=== PATIENT | female | born 1950 | race Caucasian/White ===

== ENCOUNTER → 2017-01-14 | Day surgery (SDC) | payer OTHER ==
[2017-01-06 09:36] VITALS: Ht 166.4 cm; Wt 84.1 kg
[~2017-01-14] VITALS: Ht 166.4 cm; Wt 84.1 kg
[~2017-01-14] MED LIST: ASPI81TA28 PO; CHOL1CAP57 PO; FENTANYL CITRATE INJ 50 MCG/1 ML 2 ML VIAL ONE; MAGNESIUM PO; MELA3TAB7 PO; METO50TA16 PO; MISCCAP80 PO; MISCTAB78 PO; PROPOFOL IV EMULSION 10 MG/ML 20 ML VIAL IV ONE; SODIUM CHLORIDE 0.9% 500ML 500 ML IV ONE; ZNTT/150 PO
--- NOTE | 2017-01-14 11:48 | Endo History and Physical ---
History & Physical Date of Service: Jan 14, 2017. Chief Complaint: GERD, ESOPHAGITIS, HX OF COLON POLPYS Referring Physician: Dr. Meehan History of Present Illness 66 yo CF who presents for EGD secondary to GERD and Colonoscopy secondary to history of colon polyps. Past Surgical History Hx Cardiac Surgery: No Hx Internal Defibrillator: No Hx Pacemaker: No Hx Abdominal Surgery: Yes (Cholecystectomy) Hx of Implantable Prosthesis: No Hx Post-Op Nausea and Vomiting: Yes (X 1 WITH PONV) Hx Cancer Surgery: No Hx Thoracic Surgery: No Hx Orthopedic: No Hx Urinary Tract Surgery: No Family History Esophogeal CA Social History Smoking Status: Never Smoker Hx Substance Use: No Hx Alcohol Use: Yes (SOCIAL ON OCC) Allergies Coded Allergies: Sulfa Antibiotics (Verified Allergy, Unknown, EXTREM HIVES , 01/14/17) Codeine (Verified Adverse Reaction, Unknown, VOMITING, 01/14/17) Current Medications Reported Home Medications Medications Dose Route/Sig Max Daily Dose Days Date Category Dose Instructions [Melatonin] 1 Mg PO HS 01/06/17 Reported [Magnesium] 250 Mg PO QPM 01/06/17 Reported Osteo Bi-Flex Advanced Do (Misc Natural Products) 1 Tab Tab 1 Tab PO BID 01/06/17 Reported Lopressor (Metoprolol Tartrate) 50 Mg Tab 50 Mg PO QPM 02/08/16 Reported PT IS NOT SURE IF METOPROLOL IS TARTRATE OR SUCCINATE Probiotic (Probiotic Product) 1 Cap Cap 1 Cap PO QPM 02/08/16 Reported Vitamin D3 (Cholecalciferol) 1,000 Unit Cap 1,000 Units PO QAM 02/08/16 Reported Zantac (Ranitidine HCl) 150 Mg Tab 150 Mg PO BID 02/08/16 Reported Vital Signs Weight (Kilograms): 84.09 Height (Feet): 5 Height (Inches): 5.5 Date Time Temp Pulse Resp B/P (MAP) Pulse Ox O2 Delivery O2 Flow Rate FiO2 01/14/17 11:22 36.9 76 16 140/76 (97) 99 Room Air Physical Exam General Appearance: WD/WN, no apparent distress Respiratory/Chest: Auscultation: breath sounds normal Cardiovascular: Heart Auscultation: RRR Abdomen: Bowel Sounds: normal Inspection & Palpation: soft, non-distended, no tenderness, guarding & rebound Assessment and Plan Assessment: 66 yo CF who presents for EGD secondary to GERD and Colonoscopy secondary to history of colon polyps. Plan: Proceed with EGD and colonoscopy.
--- NOTE | 2017-01-14 12:13 | Discharge Instructions ---
Endoscopy Patient Instructions Date / Procedure(s) Performed Jan 14, 2017. Colonoscopy, EGD Allergy Information Coded Allergies: Sulfa Antibiotics (Verified Allergy, Unknown, EXTREM HIVES , 01/14/17) Codeine (Verified Adverse Reaction, Unknown, VOMITING, 01/14/17) Discharge Date / Findings Jan 14, 2017. EGD: Gastritis s/p biopsies Colonoscopy: Polyp Medication Instructions 1) Recommend starting Pantoprazole 40mg by mouth each morning 1/2 hour prior to breakfast. 2) Start Carafate 1g by mouth four times daily for 10 days 3) Resume all other medications today as prescribed Reported Home Medications Medications Dose Route/Sig Max Daily Dose Days Date Category Dose Instructions [Melatonin] 1 Mg PO HS 01/06/17 Reported [Magnesium] 250 Mg PO QPM 01/06/17 Reported Osteo Bi-Flex Advanced Do (Misc Natural Products) 1 Tab Tab 1 Tab PO BID 01/06/17 Reported Lopressor (Metoprolol Tartrate) 50 Mg Tab 50 Mg PO QPM 02/08/16 Reported PT IS NOT SURE IF METOPROLOL IS TARTRATE OR SUCCINATE Probiotic (Probiotic Product) 1 Cap Cap 1 Cap PO QPM 02/08/16 Reported Vitamin D3 (Cholecalciferol) 1,000 Unit Cap 1,000 Units PO QAM 02/08/16 Reported Zantac (Ranitidine HCl) 150 Mg Tab 150 Mg PO BID 02/08/16 Reported Provider Instructions Activity Restrictions - No exercising or heavy lifting for 24 hours. - Do not drink alcohol the day of the procedure. - Do not drive a car or operate machinery until the day after the procedure. - Do not make any important decisions or sign important papers in 24 hours after the procedure. Following Day: - Return to full activity which may include returning to work/school. Diet Start your diet with liquids and light foods (jello, soup, juice, toast). Then eat your usual diet if not nauseated. Treatment For Common After Affects For mild abdominal pain, bloating, or excessive gas: - Rest - Eat lightly - Lie on right side Follow-Up Information Follow-up with as scheduled Anesthesia Information What You Should Know You have had a procedure that required some medicine to reduce anxiety and discomfort. This treatment is called moderate sedation. After receiving the treatment, you may be sleepy, but you will be able to breathe on your own. The effects of the treatment may last for several hours. Follow these instructions along with Activity/Diet recommendations noted above: * Do NOT do anything where dizziness or clumsiness would be dangerous. * Rest quietly at home today, then you can be up and about tomorrow. * Have a responsible person stay with you the rest of today. * You may have had an I.V. today. If so, you may take the dressing off later today. Recommendations Call your doctor if: * Trouble breathing * Continuous vomiting for more than 24 hours * Temperature above 101 degrees * Severe abdominal pain or bloating * Pain not relieved by pain medicine ordered * There is increased drainage or redness from any incision * A large amount of rectal bleeding greater than 2-3 tablespoons. (If you had a polyp/s removed or have hemorrhoids, a small amount of blood - from the rectum is to be expected.) * You have any unanswered questions or concerns. IN THE EVENT OF A SERIOUS EMERGENCY, GO TO THE NEAREST EMERGENCY ROOM Your discharge instructions were prepared by provider Filemon Meehan. Patient Instructions Signature Page Temi Garcia Patient (or Guardian) Signature/Date: I have read and understand the instructions given to me by my caregivers. Caregiver/RN/Doctor Signature/Date: The above-named patient and/or guardian has received patient instructions on this date. + Original Patient Signature Page (only) stays with chart. Please make copy for patient.
--- NOTE | 2017-01-14 12:17 | GI REPORT ---
Procedure Date: 01/14/2017 11:30 AM Procedure: Colonoscopy Indications: High risk colon cancer surveillance: Personal history of colonic polyps Medicines: Monitored Anesthesia Care Complications: No immediate complications. Estimated Blood Loss: Estimated blood loss: none. Procedure: Pre-Anesthesia Assessment: - Prior to the procedure, a History and Physical was performed, and patient medications and allergies were reviewed. The patient's tolerance of previous anesthesia was also reviewed. The risks and benefits of the procedure and the sedation options and risks were discussed with the patient. All questions were answered, and informed consent was obtained. Prior Anticoagulants: The patient has taken aspirin, last dose was 1 day prior to procedure. ASA Grade Assessment: II - A patient with mild systemic disease. After reviewing the risks and benefits, the patient was deemed in satisfactory condition to undergo the procedure. After I obtained informed consent, the scope was passed under direct vision. Throughout the procedure, the patient's blood pressure, pulse, and oxygen saturations were monitored continuously. The scope was introduced through the anus and advanced to the terminal ileum. The colonoscopy was performed without difficulty. The patient tolerated the procedure well. The quality of the bowel preparation was good. The terminal ileum, ileocecal valve, appendiceal orifice, and rectum were photographed. Findings: A 3 mm polyp was found in the sigmoid colon. The polyp was sessile. The polyp was removed with a cold biopsy forceps. Resection and retrieval were complete. Impression: - One 3 mm polyp in the sigmoid colon, removed with a cold biopsy forceps. Resected and retrieved. Recommendation: - Resume previous diet. - Continue present medications. - Repeat colonoscopy for surveillance based on pathology results. - Return to primary care physician as previously scheduled. Filemon Meehan, 01/14/2017 12:17:05 PM This report has been signed electronically. Note Initiated On: 01/14/2017 11:30 AM I attest to the content of the Intraoperative Record and orders documented therein, exceptions below
--- NOTE | 2017-01-14 12:19 | GI REPORT ---
Procedure Date: 01/14/2017 11:31 AM Procedure: Upper GI endoscopy Indications: Suspected gastro-esophageal reflux disease Medicines: Monitored Anesthesia Care Complications: No immediate complications. Estimated Blood Loss: Estimated blood loss: none. Procedure: Pre-Anesthesia Assessment: - Prior to the procedure, a History and Physical was performed, and patient medications and allergies were reviewed. The patient's tolerance of previous anesthesia was also reviewed. The risks and benefits of the procedure and the sedation options and risks were discussed with the patient. All questions were answered, and informed consent was obtained. Prior Anticoagulants: The patient has taken aspirin, last dose was 1 day prior to procedure. ASA Grade Assessment: II - A patient with mild systemic disease. After reviewing the risks and benefits, the patient was deemed in satisfactory condition to undergo the procedure. After obtaining informed consent, the endoscope was passed under direct vision. Throughout the procedure, the patient's blood pressure, pulse, and oxygen saturations were monitored continuously. The scope was introduced through the mouth, and advanced to the second part of duodenum. The upper GI endoscopy was accomplished without difficulty. The patient tolerated the procedure well. Findings: The examined esophagus was normal. Localized moderate inflammation characterized by erosions was found in the gastric antrum. Biopsies were taken with a cold forceps for histology. The examined duodenum was normal. Impression: - Normal esophagus. - Gastritis. Biopsied. - Normal examined duodenum. Recommendation: - Resume previous diet. - Use Protonix (pantoprazole) 40 mg PO daily. - Use sucralfate tablets 1 gram PO QID for 10 days. - Await pathology results. - Return to GI office as previously scheduled. Filemon Meehan, 01/14/2017 12:18:55 PM This report has been signed electronically. Note Initiated On: 01/14/2017 11:31 AM I attest to the content of the Intraoperative Record and orders documented therein, exceptions below
[2017-01-14 12:48] VITALS: BP 102/56; PULSE 66; O2SAT 97
--- NOTE | 2017-01-14 13:17 | Anesthesiology Progress Note ---
Anesthesia Post Op Note Date & Time Jan 14, 2017 at 13:17 Vital Signs Pain Intensity: 0 Vital Signs Past 12 Hours Date Time Temp Pulse Resp B/P (MAP) Pulse Ox O2 Delivery O2 Flow Rate FiO2 01/14/17 12:48 66 20 102/56 (71) 97 Room Air 01/14/17 12:32 67 20 97/54 (68) 97 Room Air 01/14/17 12:19 75 20 82/55 (64) 97 Room Air 01/14/17 11:22 36.9 76 16 140/76 (97) 99 Room Air Notes Mental Status: alert / awake / arousable, participated in evaluation Pt Amnestic to Procedure: Yes Nausea / Vomiting: adequately controlled Pain: adequately controlled Airway Patency, RR, SpO2: stable & adequate BP & HR: stable & adequate Hydration State: stable & adequate Anesthetic Complications: no major complications apparent
== END | disposition home or self-care (01) ==
LOC: C.GI 10:54
PROVIDERS: ATTEND Internal Medicine
DX: Z12.11 Encounter for screening for malignant neoplasm of colon (principal); D12.5 Benign neoplasm of sigmoid colon; Z86.010 Personal history of colon polyps; K29.50 Unspecified chronic gastritis without bleeding; K21.9 Gastro-esophageal reflux disease without esophagitis; Z80.0 Family history of malignant neoplasm of digestive organs; Z79.899 Other long term (current) drug therapy

== ENCOUNTER → 2017-05-18 | Outpatient (CLI) | payer OTHER ==
[~2017-05-18] MED LIST changes: -FENTANYL CITRATE INJ 50 MCG/1 ML 2 ML VIAL ONE; -PROPOFOL IV EMULSION 10 MG/ML 20 ML VIAL IV ONE; -SODIUM CHLORIDE 0.9% 500ML 500 ML IV ONE
--- NOTE | 2017-05-18 16:33 | DIAGNOSTIC IMAGING REPORT ---
CHEST 2 VIEWS ROUTINE CLINICAL HISTORY: COUGH COMPARISON STUDY: 02/08/2016 FINDINGS: The cardiac and mediastinal contours are normal. There is no evidence of focal pulmonary consolidation. There is no evidence of failure. No pleural effusions are visualized.[ IMPRESSION: No active disease in the chest. Electronically signed by: Osman Garcia M.D. 05/18/2017 4:32 PM Dictated Date/Time: 05/18/2017 4:32 PM
== END | disposition home or self-care (01) ==
LOC: C.RADBC 16:06
PROVIDERS: ATTEND Nurse Practitioner
DX: R05 Cough (principal)

== ENCOUNTER → 2017-06-19 | Outpatient (CLI) | payer OTHER ==
--- NOTE | 2017-07-03 13:37 | MAMMOGRAPHY REPORT ---
BILATERAL DIGITAL SCREENING MAMMOGRAM TOMOSYNTHESIS WITH CAD: 06/19/2017 CLINICAL HISTORY: Routine screening. Patient has no complaints. TECHNIQUE: Breast tomosynthesis in addition to standard 2D mammography was performed. Current study was also evaluated with a Computer Aided Detection (CAD) system. COMPARISON: Outside prior screen film mammograms dated 01/01/2010 and 11/20/2008. BREAST COMPOSITION: There are scattered areas of fibroglandular density in both breasts. FINDINGS: No suspicious masses, calcifications, or areas of architectural distortion are noted in ei ther breast. There has been no significant interval change compared to prior exams. Small circumscri bed 7 mm benign-appearing mass in the left upper outer quadrant is stable. Circumscribed oval benign -appearing 8 mm mass within the right lateral anterior breast is also not significantly changed. IMPRESSION: ACR BI-RADS CATEGORY 2: BENIGN There is no mammographic evidence of malignancy. A 1 year screening mammogram is recommended. The pa tient will receive written notification of the results. Approximately 10% of breast cancers are not detected with mammography. A negative mammographic report should not delay biopsy if a clinically suggestive mass is present. Carlene Bingham M.D. ah/:07/03/2017 07:51:24 Neurology Teacher: Estephanie MICHEL(Mukesh)(M), [facility] letter sent: Normal 1/2 BI-RADS Code: ACR BI-RADS Category 2: Benign
== END | disposition home or self-care (01) ==
LOC: C.MAMM 14:37
PROVIDERS: ATTEND Internal Medicine
DX: Z12.31 Encounter for screening mammogram for malignant neoplasm of breast (principal)

== ENCOUNTER 2017-08-24 10:36 | Emergency (ER) | payer OTHER ==
[~2017-08-24] VITALS: Ht 167.6 cm; Wt 85.0 kg
[2017-08-24 10:41] VITALS: TEMP 36.8; Ht 167.6 cm; Wt 85.0 kg
[2017-08-24 10:55] VITALS: O2SAT 100
[2017-08-24] MEDS ORDERED: APIX1TAB3 PO (11:23)
--- NOTE | 2017-08-24 11:23 | EMERGENCY ROOM VISIT NOTE ---
History First contact with patient: 10:38 Chief Complaint: CARDIAC ASSESSMENT Stated Complaint: A-FIB (SENT BY DR BOO) Nursing Triage Summary: HAD PALPATATION THAT STarted 0430 non now History of Present Illness The patient is a 66 year old female who presents to the Emergency Room with complaints of injury for evaluation. The patient states that she started having symptoms this morning around 4:30 AM. She felt like her heart was racing and she was having palpitations. He was seen by Dr. Velez in the office and diagnosed with A. fib with RVR with a heart rate around 140. She was sent to the emergency department for further evaluation. When she was in the waiting room, she states that she suddenly felt like her symptoms resolved. Upon coming back to the room, the patient was found to be in a normal sinus rhythm. She is currently symptomatically has no complaints. She denied having any chest pains, palpitations, recent illness or fevers. I spoke with Dr. Boo. He would like the patient be placed on Apixaban 5mg bid and increase Lopressor to 25 bid. Review of Systems As above otherwise negative for 10 systems. Past Medical/Surgical History Medical Problems: (1) Atrial fibrillation with RVR (2) Hypokalemia, excessive renal losses Social History Smoking Status: Never Smoker Drug Use: none Marital Status: Housing Status: lives with family Occupation Status: employed Current/Historical Medications Scheduled Aspirin (Aspirin Ec), 243 MG PO QAM Cholecalciferol (Vitamin D3), 1,000 UNITS PO QAM Metoprolol Tartrate (Lopressor) (Lopressor), 50 MG PO QPM Misc Natural Products (Osteo Bi-Flex Advanced Do), 1 TAB PO BID Probiotic Product (Probiotic), 1 CAP PO QPM Ranitidine (Zantac), 150 MG PO BID [Magnesium], 250 MG PO QPM [Melatonin], 1 MG PO HS Physical Exam Vital Signs Date Time Temp Pulse Resp B/P (MAP) Pulse Ox O2 Delivery O2 Flow Rate FiO2 08/24/17 10:56 100 Room Air 08/24/17 10:55 100 08/24/17 10:54 73 08/24/17 10:41 36.8 84 20 129/81 100 Room Air Physical Exam CONSTITUTIONAL/VITAL SIGNS: Reviewed / noted above. GENERAL: Non-toxic in appearance. INTEGUMENTARY: Warm, dry, and [place]. HEAD: Normocephalic. EYES: without scleral icterus or trauma. ENT/OROPHARYNX: clear and moist. LYMPHADENOPATHY/NECK: Is supple without lymphadenopathy or meningismus. RESPIRATORY: Lungs clear and equal. CARDIOVASCULAR: Regular rate and rhythm. GI/ABDOMEN: Soft and nontender. No organomegaly or pulsatile mass. No rebound or guarding. Normal bowel sounds. EXTREMITIES: Warm and well perfused. BACK: No CVA tenderness. NEUROLOGICAL: Intact without focal deficits. PSYCHIATRIC: normal affect. MUSCULOSKELETAL: Normally developed with good muscle tone. TRIAGE NURSING DOCUMENTATION REVIEWED. Medical Decision & Procedures ER Provider Diagnostic Interpretation: Twelve-lead EKG: Per my interpretation reveals a normal sinus rhythm at a rate of 75. No acute injury or ectopy. Medical Decision the differential that was considered includes acute myocardial infarction, acute coronary syndrome, myocarditis, pericarditis, pericardial effusions / tamponad, esophageal perforation, thoracic aortic dissection, pulmonary embolism , pneumonia, pneumothorax, pancreatitis, shingles, acute cholecystitis, perforated abdominal viscus. The patient presents as above with resolved A. fib. I spoke with Dr. Peña. The patient will be discharged on Apixaban 5 mg twice a day and increase Lopressor from 25 4 times a day to 25 twice a day. Blood Pressure Screening Patient's blood pressure: Normal blood pressure Impression Primary Impression: Atrial fibrillation with RVR Departure Information Dispostion Home / Self-Care Prescriptions Apixaban (ELIQUIS) 5 Mg Tab 5 MG PO BID for 30 Days, #60 TAB Prov: Manpreet Rubalcava D.O. 08/24/17 Referrals RV. Mcgill MD (PCP) Patient Instructions My [facility] Additional Instructions Apixaban twice a day as prescribed. Take Lopressor 25mb twice a day. Follow-up with Dr. Peña.
[2017-08-24] MEDS ORDERED: METO50TA7 PO (11:34)
[2017-08-24] MEDS ORDERED: PANT40TA PO (11:35)
[2017-08-24 11:55] VITALS: BP 110/72; PULSE 71; O2SAT 98
--- NOTE | 2017-08-24 12:04 | Pharmacy Progress Note ---
ED Pharmacist Progress Note Date of Service: Aug 24, 2017. Apixiban Rx sent to [facility] in error. Spoke w/ Sonya at [facility] and confirmed Rx has been cancelled there. Patient preferred [facility] on [address] instead. Dr Rubalcava giving pt written Rx.
== END 2017-08-24 11:55 | disposition home or self-care (01) ==
LOC: C.EDB 10:38
DX: I48.91 Unspecified atrial fibrillation (principal); Z79.82 Long term (current) use of aspirin

== ENCOUNTER 2024-11-21 05:23 | Observation (INO) ==
--- NOTE | 2024-10-21 16:10 | PAT Medication Instructions ---
Medication Instructions Date of Service October 21, 2024 Home Medications apixaban 5 mg tablet (Eliquis) 5 mg PO BID cholecalciferol (vitamin D3) 25 mcg (1,000 unit) capsule 1,000 units PO QAM atenolol 25 mg tablet 25 mg PO HS coenzyme Q10 10 mg capsule (Co Q-10) 10 mg PO QPM melatonin 5 mg tablet 5 mg PO HS PRN Sleep flecainide 50 mg tablet 100 mg PO Q12H alprazolam 0.25 mg tablet (Xanax) 0.25 mg PO DAILY PRN anxiety cyclobenzaprine 10 mg tablet 10 mg PO HS PRN Muscle Spasms pantoprazole 40 mg tablet,delayed release (Protonix) 40 mg PO QAM ASK your prescriber and surgeon apixaban 5 mg tablet (Eliquis) 5 mg PO BID (From anesthesia perspective, Apixaban/Eliquis needs to be stopped 72 hours/3 days before surgery. Please check if okay with doctor that prescribes this to you) STOP taking 2 weeks before surgery (or as soon as possible if surgery is within 2 weeks) coenzyme Q10 10 mg capsule (Co Q-10) 10 mg PO QPM DO NOT take the morning of surgery cholecalciferol (vitamin D3) 25 mcg (1,000 unit) capsule 1,000 units PO QAM Take morning of surgery With a small sip of water, OTHERWISE NOTHING TO EAT OR DRINK AFTER MIDNIGHT: flecainide 50 mg tablet 100 mg PO Q12H alprazolam 0.25 mg tablet (Xanax) 0.25 mg PO DAILY PRN anxiety (if needed) pantoprazole 40 mg tablet,delayed release (Protonix) 40 mg PO QAM Take evening before surgery atenolol 25 mg tablet 25 mg PO HS melatonin 5 mg tablet 5 mg PO HS PRN Sleep (if needed) flecainide 50 mg tablet 100 mg PO Q12H alprazolam 0.25 mg tablet (Xanax) 0.25 mg PO DAILY PRN anxiety (if needed) cyclobenzaprine 10 mg tablet 10 mg PO HS PRN Muscle Spasms (if needed) Other Notes If you have any questions please call us at [phone] or [phone] or [phone] or [phone]
--- NOTE | 2024-10-28 10:46 | Anesthesiology Consultation ---
Date of Service October 28, 2024 Assessment & Plan (1) Encounter for pre-operative examination: - Infectious disease screening: Per assessment on 10/28/24- No known recent infectious disease contacts or current infectious disease symptoms. - Outpatient joint assessment: Pt currently scheduled for inpatient pathway. If surgeon requests review for outpatient joint pathway, patient is not recommended candidate for outpatient joint program from anesthesia standpoint based on available information. - Eliquis instructions: patient made aware that for neuraxial anesthesia, Eliquis needs to be held 72 hours prior to surgery. Patient voiced understanding/will check if okay with prescriber. - Cardiology visit (10/17/24): "From my standpoint she is doing well. Her blood pressure is well-controlled. She has not had any recurrence of her atrial fibrillation on a combination of flecainide and atenolol.. EKG is unchanged and even though she has inferior Q waves there is no evidence of wall motion abnormalities based on her echo of April 2024.. With regards to hip surgery she can proceed at intermediate risk. I believe her greatest risk is that of atrial fibrillation associated with surgery. That risk is probably in the range of 3 to 4%. She can stop her Eliquis 3 days prior to surgery.. I believe her ri sk of heart attack, dying from cardiac causes and heart failure is less than 1% ." Chart Review Chart Review: Acceptable Risk for Surgery and Patient seen in Pre Admission Testing Teaching & Discussion Pre-Anesthesia Teaching/Discussion Notes: Instructed NPO after midnight before surgery,except medications with 15 cc of water. Medication instructions provided according to the PAT guidelines. History Surgery Operation Date: 11/21/24 10:15 Proposed Procedures p Left Anterior Total Hip Arthroplasty - Randall Brewer, Height/Weight Height: 5 ft 6 in Weight: 80.8 kg Allergies Allergy/AdvReac Type Severity Reaction Status Date / Time codeine Allergy Intermediate Facial Verified 10/20/24 10:17 Swelling Sulfa (Sulfonamide Allergy Intermediate Hives Verified 10/20/24 10:17 Antibiotics) amoxicillin [From Augmentin] AdvReac Intermediate Vomiting, Verified 10/20/24 10:17 Diarrhea clavulanic acid AdvReac Intermediate Vomiting, Verified 10/20/24 10:17 [From Augmentin] Diarrhea Medications Home Medications Medication Instructions Recorded Confirmed Last Taken apixaban 5 mg tablet (Eliquis) 5 mg PO BID 06/01/19 10/20/24 01/10/22 cholecalciferol (vitamin D3) 25 1,000 units PO QAM 08/18/19 10/20/24 01/13/22 08:30 mcg (1,000 unit) capsule atenolol 25 mg tablet 25 mg PO HS 06/07/20 10/20/24 01/12/22 coenzyme Q10 10 mg capsule (Co 10 mg PO QPM 10/19/20 10/20/24 01/12/22 Q-10) melatonin 5 mg tablet 5 mg PO HS PRN Sleep 09/12/21 10/20/24 Unknown flecainide 50 mg tablet 100 mg PO Q12H 05/11/24 10/20/24 Unknown alprazolam 0.25 mg tablet (Xanax) 0.25 mg PO DAILY PRN anxiety 10/20/24 10/20/24 Unknown cyclobenzaprine 10 mg tablet 10 mg PO HS PRN Muscle Spasms 10/20/24 10/20/24 Unknown pantoprazole 40 mg tablet,delayed 40 mg PO QAM #90 tabs 10/28/24 Unknown release (Protonix) Past Medical History Medical History Abnormal mammogram of both breasts [place] breast biopsy done 10/31- Fibrocystic change. Columnar cell change/hyperplasia. Rare microcalcifications noted. Anxiety Arthritis Atrial fibrillation Follows with [facility]/Dr. Boo Taking Eliquis/flecainide Back pain Balance disorder Uses walking Sticks Cervical spinal stenosis Degenerative disc disease GERD (gastroesophageal reflux disease) History of colon polyps History of COVID-19 07/2020 History of endometrial biopsy History of squamous cell carcinoma Hypertension Insomnia Osteoarthritis of left hip Post-nasal drip Restless leg syndrome Noted per records, nighttime muscle spasms/twitching episodes Per patient, PCP told them they "didn't think it was restless leg syndrome" Tremor Occasional, hands (L > R) Exercise / Class Metabolic Activity III < 4 Walking/Shop/Light housework Past Family History Family History Aunt No problems noted. Mother Coronary heart disease Father Coronary heart disease Brother No problems noted. Grandmother (Maternal) Family history of diabetes mellitus Other No family history of adverse response to anesthesia Denies family history of Ovarian cancer Prostate cancer Breast cancer Past Surgical History Surgical History Eyelid cyst Removed History of cardioversion ~2018 History of cataract surgery Bilateral History of colonoscopy (2021) History of esophagogastroduodenoscopy (EGD) (2021) History of squamous cell carcinoma excision History of toe surgery Left foot History of tonsillectomy and adenoidectomy Nausea and vomiting after administration of anesthetic agent S/P cholecystectomy [place] teeth removed Past Anesthesia History No Hx of Anesthesia Complications and No Family Hx of Anesthesia Complications History of PONV No Hx of Motion Sickness and History of PONV (40 years ago) Social History Smoking Status: Never smoker Do You Dip or Chew Tobacco: Yes Hx Alcohol Use: No alcohol intake frequency: holidays/special occasions only Hx Substance Use: No substance use type: does not use Review of Systems Patient denies chest pain, shortness of breath, fever, chills, cough, wheezing, palpitations. Physical Exam Vital Signs BP 116/76 P 57 TEMP 97.9 SP02 100%RA RESP 16 Physical Full cervical extension range of motion. Full TMJ range of motion. TMD > 3.5 finger breaths Mallampati Score II Dentition: missing (sides/molars), + caps Lungs: clear throughout to auscultation Cardiac: regular rate and rhythm, no murmurs noted Spine: normal Carotid arteries: negative bruit Extremities: no LE edema Lab Results Anesthesia Preop Results Results Anesthesia Widget: WBC 8.82 K/ul (4.8-10.8) 10/28/24 Hgb 12.4 g/dl (12.0-16.0) 10/28/24 Hct 36.8 % (37.0-47.0) L 10/28/24 Plt 250 K/uL (130-400) 10/28/24 Na 138 mmol/L (136-145) 10/28/24 K 4.3 mmol/L (3.5-5.1) 10/28/24 Cl 104 mmol/L (98-107) 10/28/24 CO2 30 mmol/L (21-32) 10/28/24 BUN 22 mg/dl (6-23) 10/28/24 Creat 0.85 mg/dl (0.6-1.2) 10/28/24 Glucose Level 72 mg/dl (70-99(Fasting)) 10/28/24 PT 12.0 Seconds (9.0-12.0) 10/28/24 PTT 28 Seconds (21-31) 10/28/24 INR 1.1 (0.9-1.1) 10/28/24 Blood Type AB Positive 10/28/24 Antibody Screen NEGATIVE 10/28/24 Testing Electrocardiogram Date: 10/17/24 NSR at 60bpm. LAD. LAFB. Low voltage in limb leads. Chest X-Ray Date: 10/28/24 IMPRESSION: 1. No active cardiopulmonary disease. No other abnormalities noted. 2. Mild thoracic spondylosis. Echocardiogram Date: 04/27/24 EF 65-70%. No LVH. No RWMA. Grade II DD. Mild AR/MR/TR.
--- NOTE | 2024-11-16 15:10 | History & Physical Report ---
Date of Service November 16, 2024 Assessment & Plan (1) Osteoarthritis of left hip: We will proceed with a left anterior total of arthroplasty. Postoperatively she will be started on Eliquis for DVT prophylaxis and kept overnight in the hospital for postop medical management. She plans to use energy physical Lucidux erapy upon discharge. History of Present Illness Chief Complaint: Osteoarthritis of the left hip. Primary Care Provider: Jeffery Fernandez MD Temi is a pleasant 74-year-old female who has been dealing with chronic increasing left hip and groin pain. 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 She had an injection from one of my partners in her hip joint, which gave her 3 weeks of relief. Unfortunately, she is still struggling some with the left hip. It hurts her in her groin and it radiates down towards her knee. After failed conservative treatment, she has elected proceed with a left anterior total of arthroplasty. Allergies Allergy/AdvReac Type Severity Reaction Status Date / Time codeine Allergy Intermediate Facial Verified 10/20/24 10:17 Swelling Sulfa (Sulfonamide Allergy Intermediate Hives Verified 10/20/24 10:17 Antibiotics) amoxicillin [From Augmentin] AdvReac Intermediate Vomiting, Verified 10/20/24 10:17 Diarrhea clavulanic acid AdvReac Intermediate Vomiting, Verified 10/20/24 10:17 [From Augmentin] Diarrhea Home Medications Medication Instructions Recorded Confirmed Type apixaban 5 mg tablet (Eliquis) 5 mg PO BID 06/01/19 10/20/24 History cholecalciferol (vitamin D3) 25 1,000 units PO QAM 08/18/19 10/20/24 History mcg (1,000 unit) capsule atenolol 25 mg tablet 25 mg PO HS 06/07/20 10/20/24 History coenzyme Q10 10 mg capsule (Co 10 mg PO QPM 10/19/20 10/20/24 History Q-10) melatonin 5 mg tablet 5 mg PO HS PRN Sleep 09/12/21 10/20/24 History flecainide 50 mg tablet 100 mg PO Q12H 05/11/24 10/20/24 History alprazolam 0.25 mg tablet (Xanax) 0.25 mg PO DAILY PRN anxiety 10/20/24 10/20/24 History cyclobenzaprine 10 mg tablet 10 mg PO HS PRN Muscle Spasms 10/20/24 10/20/24 History pantoprazole 40 mg tablet,delayed 40 mg PO QAM #90 tabs 10/28/24 Rx release (Protonix) Past Med/Surg History Problem List Cyst of right breast Osteoarthritis of left hip Abnormal mammogram of both breasts Idiopathic polyneuropathy Lumbosacral radiculopathy Anticipatory grief Tremor Paresthesia of lower extremity Cervical spinal stenosis Balance disorder Spondylosis of cervical spine Rotator cuff tear, left Calcifying tendinitis of left shoulder Hypertension Carpal tunnel syndrome of right wrist (Acute) Anxiety GERD (gastroesophageal reflux disease) Restless legs syndrome (Acute) Sleep disturbance (Acute) A-fib Medical History Balance disorder Uses walking Sticks History of squamous cell carcinoma Abnormal mammogram of both breasts [place] breast biopsy done 10/31- Fibrocystic change. Columnar cell change/hyperplasia. Rare microcalcifications noted. Restless leg syndrome Noted per records, nighttime muscle spasms/twitching episodes Per patient, PCP told them they "didn't think it was restless leg syndrome" Osteoarthritis of left hip Tremor Occasional, hands (L > R) Cervical spinal stenosis Hypertension Anxiety Atrial fibrillation Follows with [facility]/Dr. Boo Taking Eliquis/flecainide Back pain Post-nasal drip History of colon polyps History of endometrial biopsy Degenerative disc disease Arthritis GERD (gastroesophageal reflux disease) Insomnia History of COVID-19 07/2020 Surgical History History of cardioversion ~2019 History of toe surgery Left foot History of squamous cell carcinoma excision History of cataract surgery Bilateral Nausea and vomiting after administration of anesthetic agent History of esophagogastroduodenoscopy (EGD) (2021) History of colonoscopy (2021) [place] teeth removed History of tonsillectomy and adenoidectomy Eyelid cyst Removed S/P cholecystectomy Family History Aunt No problems noted. Mother Coronary heart disease Father Coronary heart disease Brother No problems noted. Grandmother (Maternal) Family history of diabetes mellitus Other No family history of adverse response to anesthesia Denies family history of Ovarian cancer Prostate cancer Breast cancer Social History Smoking Status: Never smoker Second Hand Exposure: Yes; Do You Dip or Chew Tobacco: Yes; Tobacco Cessation Education Requested by Patient: No Hx Alcohol Use: No Hx Substance Use: No Preferred Language: Azeri Communication Ability: Effective Visual Impairment: Limited Hearing Ability: Normal Payroll Manager Required: No Beliefs That Will Affect Care: None marital status: / current occupational status: retired Other Information That Helps Us Care for You: No Feels Safe at Home: Yes Safety Concerns: Feels Safe At This Time Childhood Exposure to Second-Hand Smoke: Yes Dental Care, Regularly: Yes Physical Activity Frequency: 1-2 Times per Week Seatbelt Use: always Sunscreen Use: Yes Assistive Devices: Glasses Assistive Devices Comment: Walking Poles Review of Systems All systems reviewed & are unremarkable except as noted in HPI & below. Physical Exam On physical exam of the left hip, she has decreased range of motion. She has pain with internal/external rotation. All of her pain is located in the groin.. Constitutional WD/WN, vitals as above Eyes PERRL, conjunctivae normal, anicteric sclerae ENMT external ear and nose normal, oropharynx normal Neck trachea midline, no thyromegaly Respiratory normal respiratory effort Cardiovascular RRR, no murmur, no edema Gastrointestinal (Abdomen) normal bowel sounds, soft, nontender, no hepatosplenomegaly Psychiatric A+Ox3, euthymic affect Results & Data Results & Data Laboratory Results . Diagnostic Findings X-rays of the left hip show advanced osteoarthritis with joint space narrowing, osteophyte formation, and uref-li-ngul articulation. PG Care Time/CCT Total # of Minutes Spent Total Time Spent with Patient: Total time spent is greater than 50% in coordination of care (as documented) at patient's floor/unit and/or counseling patient: Coding Level of Care Code None Diagnoses Osteoarthritis of left hip M16.12
[2024-11-21] MEDS: dexAMETHasone**PF** 10 MG/ML VIAL IV SCH (05:54)
[2024-11-21] MEDS: LR 60ML/HR IV SCH (05:54)
[2024-11-21] MEDS: LR 500ML BOLUS, THEN 15ML/HR IV SCH (05:54)
[2024-11-21] MEDS: ACETAMINOPHEN 500 MG TAB PO SCH ×2 (05:54→15:10)
[2024-11-21] MEDS: GABAPENTIN 300 MG CAP PO SCH (05:54)
[2024-11-21] MEDS: FAMOTIDINE 20 MG TAB PO SCH (05:54)
[2024-11-21] MEDS ORDERED: LR 15ML/HR IV SCH (06:00)
[2024-11-21] MEDS ORDERED: ATROPINE SULFATE 0.1 MG/ML 10ML SYR IV PRN (06:31)
[2024-11-21] MEDS ORDERED: KETOROLAC 30 MG/ML VIAL IV PRN (06:31)
[2024-11-21] MEDS ORDERED: PROMETHAZINE HCL 6.25 MG in SODIUM CHLORIDE 0.9% 50 ML IV PRN (06:31)
[2024-11-21] MEDS ORDERED: HYDROmorphone INJ 1 MG/ML SYRINGE IV PRN (06:31)
[2024-11-21] MEDS ORDERED: ePHEDrine sulfate 50 MG/ML AMP IV PRN (06:31)
[2024-11-21] MEDS ORDERED: ROPIVACAINE 0.5% 5 MG/ML 30 ML VIAL ONE (06:32)
[2024-11-21] MEDS ORDERED: MIDAZOLAM HCL 1 MG/ML 2ML VIAL ONE (06:33)
[2024-11-21] MEDS ORDERED: ONDANSETRON INJ 2 MG/ML 2 ML VIAL ONE (06:37)
[2024-11-21] MEDS ORDERED: PROPOFOL IV EMULSION 10 MG/ML 20 ML VIAL IV ONE ×2 (06:37→07:27)
[2024-11-21] MEDS: TRANEXAMIC ACID 1,000 MG **IV Pre-op IV SCH (06:39)
--- NOTE | 2024-11-21 06:45 | History & Physical Bridge Note ---
Date of Service November 21, 2024 History & Physical Bridge Note I have examined the patient, reviewed the History & Physical and in the interval since the performance of the History & Physical I have noted the following changes of clinical significance: no changes noted
[2024-11-21] MEDS: ceFAZolin 2000MG 2,000 MG/15 ML SYR IV SCH ×2 (06:57→15:10)
[2024-11-21] MEDS ORDERED: ePHEDrine sulfate 50 MG/5 ML SYR ONE (07:34)
[2024-11-21] MEDS: ROPIV 0.5% 246mg, Ketorolac 30mg, EPINEPHrine 0.5mg in NSS INFIL SCH (07:37)
[2024-11-21] MEDS: ORTHO JOINT ANESTHETIC ONE (07:37)
[2024-11-21] MEDS: TRANEXAMIC ACID 1,000 MG **IV Intra-op IV SCH (08:04)
--- NOTE | 2024-11-21 08:09 | Operative Report ---
PG Post Operative Report Pre & Post Diagnosis Operation Date: 11/21/24 07:00 Pre-Op Diagnosis: Left Hip Osteoarthritis Post-Op Diagnosis: Left Hip Osteoarthritis I identified the patient and participated in the time-out.: Yes Procedure Operation Date: 11/21/24 07:00 Actual Procedures p Left Total Hip Arthroplasty Anterior, Uncemented(Left) - Randall Brewer DO Surgeon Randall Brewer DO Debridging Machine Operator Steve Barreto PA-C Estimated Blood Loss 150 Findings Consistent with Post-Op Diagnosis Specimens Left femoral head Description of Procedure Implants used I used a [employer]immer[employer]omet total hip arthroplasty system with a size 3 standard offset Z1 stem, a 48 mm G7 cup with a 25mm screw, an E1 polyethylene liner, a 32 mm ceramic head with a +3.5 neck. Temi arrived at the hospital for the above procedure. She was seen in the preoperative holding area and the operative extremity was identified and signed. She was given a spinal anesthetic, a preoperative antibiotic, and TXA. She was then taken back to the operating room and laid on the table in the supine position. She was given basic sedation. The operative leg was secured to a Puristst leg positioner. The hip was then prepped and draped in sterile fashion. A timeout was done and the patient and the operative extremity was properly identified. An anterior approach was used. Dissection was taken down through the fascia and the tensor muscle belly was retracted laterally and the rectus was retracted medially. The circumflex vessels were identified and ligated. The capsule was then incised and tagged for later repair. The femoral neck was then cut and the femoral head was removed. The acetabulum was exposed. Time was spent doing a complete circumferential labral release. Sequential reaming of the acetabulum up to a size 47 reamer was done. Final reamings were done under fluoroscopy to ensure appropriate version. A Biomet 48 mm G7 cup was then impacted into place. A single 25 mm screw was placed. The E1 polyethylene liner was then snapped into place. Surrounding soft tissues were then injected with 100 cc of an orthopedic pain control cocktail. The proximal femur was then exposed. Sequential broaching up to a size 3 broach was done. Off that broach a size 32 head with a +3.5 neck was trialed. The hip was reduced and fluoroscopic images showed anatomic alignment of the implants in acceptable length. The broach was removed. The final size 3 Z1 stem was then impacted into place. A ceramic 32 mm head with a +3.5 neck was then impacted onto the stem and the hip was reduced. Final fluoroscopic images showed anatomic alignment of the hip. The capsule was then closed with #1 Vicryl suture. A dilute betadyne lavage was then done for 3 minutes. The joint was then irrigated with normal saline solution. The fascia was closed with #1 PDS suture. Skin was closed with 2-0 Vicryl, jerilyn, and a Silverlon dressing. She was then transferred to a hospital bed and taken to the post anesthesia care unit in stable condition. She tolerated the procedure well. Steve Barreto PA-C, was present for the entire procedure. He was critical for patient positioning, prepping, draping, retraction exposure, wound closure and application of sterile dressing. I attest to the content of the Intraoperative Record and any orders documented therein. Any exceptions are noted below.
--- NOTE | 2024-11-21 08:38 | Fluoroscopy Report ---
FL hip LT 1V CLINICAL HISTORY: LEFT ANT HIP COMPARISON STUDY: Radiographs 10/11/2024 FLUOROSCOPY TIME: 9.4 seconds FLUOROSCOPY IMAGES: 1 EXPOSURE DOSE: 0.9442 mGy FINDINGS: Left hip arthroplasty demonstrates satisfactory alignment. No acute fracture or unexpected opaque foreign body. IMPRESSION: Fluoroscopic assistance as above. ACT 112: Negative or not required by law. Electronically signed by: Luis Antonio Camacho M.D. 11/21/2024 8:36 AM
--- NOTE | 2024-11-21 09:03 | XRay Report ---
XR hip 1V LT w pelvis CLINICAL HISTORY: Postoperative evaluation. COMPARISON: Left hip radiographs April 18, 2024. FINDINGS: Alignment of the total left hip arthroplasty is present. There is no periprosthetic fractu re or unexpected radiopaque foreign body. There are skin jerilyn. IMPRESSION: Expected findings following total left hip arthroplasty. ACT 112: Negative or not required by law. Electronically signed by: Dileep Rivas M.D. 11/21/2024 9:02 AM
[2024-11-21] MEDS ORDERED: NALOXONE HCL 0.4 MG/1 ML VIAL/CARP IV PRN (10:05)
[2024-11-21] MEDS ORDERED: METOCLOPRAMIDE HCL INJ 5 MG/ML 2 ML VIAL IV PRN (10:05)
[2024-11-21] MEDS ORDERED: ONDANSETRON INJ 2 MG/ML 2 ML VIAL IV PRN (10:05)
[2024-11-21] MEDS ORDERED: oxyCODONE HCL IR 5 MG TAB (IMMEDIATE RELEASE) PO PRN (10:05)
[2024-11-21] MEDS ORDERED: MAGNESIUM HYDROXIDE SUSP 30 ML UDC PO PRN (10:05)
[2024-11-21] MEDS ORDERED: HYDROmorphone INJ 0.5 MG/0.5 ML SYR IV PRN (10:05)
[2024-11-21] MEDS ORDERED: bisacodyL 10 MG SUPP PR PRN (10:05)
[2024-11-21] MEDS: MULTIVITAMIN TAB PO SCH (11:21)
[2024-11-21] MEDS: PANTOprazole 40 MG TAB PO SCH (11:21)
[2024-11-21] MEDS: FLECAINIDE ACETATE 100 MG TABLET PO SCH (11:21)
[2024-11-21] MEDS: KETOROLAC TROMETHAMINE 15 MG/ML VIAL IV SCH (11:21)
[2024-11-21] MEDS: DOCUSATE SODIUM 100 MG CAP PO SCH (11:21)
--- NOTE | 2024-11-21 11:40 | Anesthesiology Progress Note ---
Date of Service November 21, 2024 Anesthesia Post Procedure Vital Signs Vital Signs: Temp Pulse Pulse Resp BP BP Pulse Ox 11/21/24 10:58 36.3 C L 68 14 122/73 99 11/21/24 10:38 36.1 C L 66 14 114/69 95 11/21/24 10:23 36.0 C L 67 14 114/69 98 11/21/24 09:55 35.6 C L 70 14 110/68 98 11/21/24 09:30 69 19 112/58 L 96 11/21/24 09:15 68 13 116/59 L 94 11/21/24 09:05 36.4 C L 73 21 116/65 98 11/21/24 08:55 69 14 115/58 L 95 11/21/24 08:45 68 12 120/57 L 100 11/21/24 08:35 74 22 132/82 94 11/21/24 08:25 36.6 C 79 12 116/61 100 11/21/24 05:42 36.6 C 67 20 153/80 H 100 O2 Del Method O2 Flow Rate 11/21/24 10:58 Room Air 11/21/24 10:38 Room Air 11/21/24 10:23 Room Air 11/21/24 09:55 Room Air 11/21/24 09:30 Room Air 11/21/24 09:15 Room Air 11/21/24 09:05 Room Air 11/21/24 08:55 Room Air 11/21/24 08:45 Oxymask 2 11/21/24 08:35 Oxymask 6 11/21/24 08:25 Oxymask 6 11/21/24 05:42 Room Air Transfer of Care Handoff Completed per policy Notes Mental Status: alert / awake / arousable Patient Amnestic to Procedure: Yes Nausea / Vomiting: adequately controlled Pain: adequately controlled Airway Patency, RR, SpO2: stable & adequate BP & HR: stable & adequate Hydration State: stable & adequate Neuraxial Anesthesia: was administered and sensory block is resolving Anesthetic Complications: no major complications apparent
[2024-11-21] MEDS ORDERED: traMADol HCL 50 MG TABLET PO PRN (12:32)
[2024-11-21] MEDS: ATENOLOL 25 MG TABLET PO SCH (20:27)
[2024-11-21] MEDS: SENNA 8.6 MG TAB PO SCH (20:27)
[2024-11-22 07:45] VITALS: BP 100/61; PULSE 70; RESP 16; TEMP 98.4; O2SAT 98
[2024-11-22] MEDS: APIXABAN 5 MG TABLET PO SCH (07:52)
[2024-11-22] MEDS: dexAMETHasone 4 MG TAB PO SCH (07:52)
--- NOTE | 2024-11-22 13:03 | Orthopedic Progress Note ---
Date of Service November 22, 2024 Assessment & Plan (1) Status post left hip replacement: Assessment: Status post left total hip arthroplasty anterior. Plan: Overall, she is doing quite well today good pain control left hip. She will work with physical therapy later this morning to work on ambulation and range of motion exercises. She was restarted on her Eliquis for DVT prophylaxis. She can be discharged home later this morning pending formal physical therapy evaluation recommendation. She is aware that her Silverlon dressing will remain in place for 7 days. She will be able to remove it after 7 days on her own or with the assistance of home physical therapy. She will follow-up with orthopedics in 2 to 3 weeks for continued postoperative management or sooner if needed. Subjective . Temi was seen and evaluated this morning resting comfortably in no apparent distress. She notes that her pain is well-controlled today to her left hip. She has been up and out of bed with no significant issues. She has yet to work physical therapy this morning. She denies any concerns with her surgical incision site. She denies any active bleeding, discharge, or signs of infection. She denies any other concerns today. Review of Systems All systems reviewed & are unremarkable except as noted in HPI & below. Physical Exam . On physical examination the left hip, the dressing is clean, dry, intact with no signs of active bleeding, discharge, or signs of infection. No erythema, ecchymosis, edema, or other obvious deformities. Her leg is out in full extension. Limited range of motion strength secondary to postoperative stiffness soreness. Calf soft nontender to palpation. Negative Homans' sign. Intact plantarflexion and dorsiflexion of left ankle. +2 DP and PT pulses. Less than 2-second capillary refill. Normal sensation. Neurovascular intact. Results & Data Results & Data Laboratory Results . Diagnostic Findings . Hip X-Ray 11/21/24 07:00 [place] hip LT 1V CLINICAL HISTORY: LEFT ANT HIP COMPARISON STUDY: Radiographs 10/11/2024 FLUOROSCOPY TIME: 9.4 seconds FLUOROSCOPY IMAGES: 1 EXPOSURE DOSE: 0.9442 mGy FINDINGS: Left hip arthroplasty demonstrates satisfactory alignment. No acute fracture or unexpected opaque foreign body. IMPRESSION: Fluoroscopic assistance as above. ACT 112: Negative or not required by law. Electronically signed by: Luis Antonio Camacho M.D. 11/21/2024 8:36 AM Hip/Pelvis X-Ray 11/21/24 08:25 XR hip 1V LT w pelvis CLINICAL HISTORY: Postoperative evaluation. COMPARISON: Left hip radiographs April 18, 2024. FINDINGS: Alignment of the total left hip arthroplasty is present. There is no periprosthetic fracture or unexpected radiopaque foreign body. There are skin jerilyn. IMPRESSION: Expected findings following total left hip arthroplasty. ACT 112: Negative or not required by law. Electronically signed by: Dileep Rivas M.D. 11/21/2024 9:02 AM PG Care Time/CCT Total # of Minutes Spent Total Time Spent with Patient: Total time spent is greater than 50% in coordination of care (as documented) at patient's floor/unit and/or counseling patient: Coding Level of Care Code 02102 Post Operative Follow-Up Diagnoses Status post left hip replacement Z96.642
--- NOTE | 2024-11-22 13:04 | Discharge Summary ---
Date of Service November 22, 2024 Admission HPI (Per Admitting) Temi is a pleasant 74-year-old female who has been dealing with chronic increasing left hip and groin pain. 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 She had an injection from one of my partners in her hip joint, which gave her 3 weeks of relief. Unfortunately, she is still struggling some with the left hip. It hurts her in her groin and it radiates down towards her knee. After failed conservative treatment, she has elected proceed with a left anterior total of arthroplasty. Admission Exam (Per Admitting) On physical exam of the left hip, she has decreased range of motion. She has pain with internal/external rotation. All of her pain is located in the groin.. Principal Diagnosis Same as "Discharge Diagnosis" noted below under Discharge Instructions. Discharge Exam . On physical examination the left hip, the dressing is clean, dry, intact with no signs of active bleeding, discharge, or signs of infection. No erythema, ecchymosis, edema, or other obvious deformities. Her leg is out in full extension. Limited range of motion strength secondary to postoperative stiffness soreness. Calf soft nontender to palpation. Negative Homans' sign. Intact plantarflexion and dorsiflexion of left ankle. +2 DP and PT pulses. Less than 2-second capillary refill. Normal sensation. Neurovascular intact. Discharge Data Procedures Performed Operation Date: 11/21/24 07:00 Actual Procedures p Left Total Hip Arthroplasty Anterior, Uncemented(Left) - Randall Brewer DO Ordered Studies 11/21/24 07:00 FL hip LT 1V Routine Hospital Course (1) Status post left hip replacement: On November 21, [address] [facility] underwent a left total hip arthroplasty anterior performed by Dr. Brewer with no complications. She had a spinal anesthetic. Postop way, she was transferred to the PACU for immediate postoperative management and then transferred to the orthopedic floor in stable condition. Her hospital course was uneventful. On postoperative day #1, her vital signs were stable and her pain is well-controlled. She was restarted on her Eliquis for DVT prophylaxis. She worked with physical therapy working on ambulation range of motion exercises. She was then discharged home in stable condition. She will follow-up with orthopedics in 2 to 3 weeks for continued postoperative management or sooner if needed. PG Care Time/CCT Total # of Minutes Spent Total Time Spent with Patient: Total time spent is greater than 50% in coordination of care (as documented) at patient's floor/unit and/or counseling patient: Discharge Plan Discharge Items Patient Disposition: Home - Home Health Services Reason For Visit: Left Hip Arthritis Discharge Diagnosis: Same Activity: Per Instructions section Non-emergency contact: Surgeon Call non-emergency contact if: your temperature is above 101.5, your wound has increased redness, your wound has increased drainage and your wound pain has increased Follow-up/Referrals: Jeffery Fernandez MD [Primary Care Provider] - Diet: Regular Addtl Attending Provider Instructions: Activity and Therapy Recommendations: * If you are using [facility] then therapy will be provided at your home until they feel you have accomplished all of your goals. * If you are using [facility] then Physical Therapy will be provided until they feel you are ready to start Outpatient Physical Therapy. * If you are not using home therapy then Outpatient Physical Therapy should start about 3-5 days from your day of surgery. Therapy will last about 6-10 weeks * You were shown a series of exercises in the hospital. Do these exercises three times each day including the exercises you were shown in physical therapy. * Get up and walk several times each day.~ For the first four weeks, try not to stand or walk for more than one hour at a time. If you do stand or walk for more than one hour, you will not hurt anything, but your leg will likely swell.~~ * As you feel comfortable, you may change from the walker or crutches to a cane and~then to independent walking. Medications: * Narcotic You will likely be sent home from the hospital with a prescription for the narcotic pain medication that worked best throughout your stay. * Cefadroxil -take the antibiotic twice a day for 10 days to help prevent infection. * Continue your Eliquis for DVT prophylaxis. * Other medications may be prescribed for specific circumstances. If you have any questions, please call the office at . * Resume previous home medications unless otherwise instructed TEDs/Elastic Stockings: The white elastic stockings help limit swelling and prevent blood clots from forming in your legs. The more you wear them, the more they work. Wear them for 2 weeks. Dressing Care: Leave the Silverlon dressing in place for 7 days. After 7 days you may remove the dressing. If the incision is not draining then you may leave the jerilyn open to air. If there is a little bit of drainage or if the jerilyn are getting stuck on your clothing then cover the incision with a dry dressing. The jerilyn will be removed at your 2 week follow-up appointment. Showering: You may shower with the Silverlon dressing in place. Do not let the shower spray hit the dressing directly. Pat the Silverlon dressing dry. If the dressing becomes wet underneath, then simply remove the dressing. Keep the incision dry until you are 7 days out from the day of surgery. After 7 days you may remove the Silverlon dressing and shower with the jerilyn exposed. Let soapy water run over the jerilyn and pat them dry. Do not scrub or soak the incision. Diet: You may resume your previous diet. Things To Watch For: * Drainage from the incision site that occurs more than one week after your surgery. * Increased redness at the incision site. * Fever above 102 degrees Fahrenheit. * Unusual chest pain or shortness of breath. * Call [facility] at with any of the above problems Follow-Up Visit: Follow-up with Dr. Brewer's office 2-3 weeks after your day of surgery. We will remove your jerilyn and answer any questions. If you have any additional questions or concerns, Dr Brewer is usually in the office at the same time and will be available An appointment was probably scheduled when you signed-up for surgery in the office. If you have any questions call Office Instructions: More detailed instructions as well as Frequently Asked Questions were provided in a folder by our office when you signed-up for surgery. Please review these instructions when you get home. If you have any further questions or concerns, please feel free to call the office at [phone] Pending Studies at Discharge: No Stand-Alone Forms: [facility] [employer] [facility], Pain - Opioid Pain Management, Smoking Cessation Medications and DC Order Prescriptions: New cefadroxil 500 mg capsule 500 mg PO BID 10 Days Qty: 20 0RF tramadol 50 mg tablet 50 mg PO Q6H PRN (Reason: pain) Qty: 30 0RF Continued pantoprazole [Protonix] 40 mg tablet,delayed release (DR/EC) 40 mg PO QAM Qty: 90 3RF Rx Instructions: TAKE 1 TABLET BY MOUTH EVERY DAY Eliquis 5 mg tablet 5 mg PO BID flecainide 50 mg tablet 100 mg PO Q12H cholecalciferol (vitamin D3) 25 mcg (1,000 unit) capsule 1,000 units PO QAM atenolol 25 mg tablet 25 mg PO HS coenzyme Q10 [Co Q-10] 10 mg capsule 10 mg PO QPM melatonin 5 mg tablet 5 mg PO HS PRN (Reason: Sleep) cyclobenzaprine 10 mg tablet 10 mg PO HS PRN (Reason: Muscle Spasms) alprazolam [Xanax] 0.25 mg tablet 0.25 mg PO DAILY PRN (Reason: anxiety) Krames/Other Patient Handouts: DVT Post Op Prevention Admission Data Admit Date/Time: 11/21/24 08:25 Attending Provider: Randall Brewer Admit Provider: Randall Brewer Primary Care Provider: Jeffery Fernandez V. Other Interventions: Discharge Summary Assessment (RN) Last Done: 11/22/24 09:16
== END 2024-11-22 12:34 | disposition home health service (06) ==
LOC: 3E 05:23 → ASU 05:23
DX: Z88.2 Allergy status to sulfonamides; Z72.0 Tobacco use; I10 Essential (primary) hypertension; Z88.0 Allergy status to penicillin; M25.752 Osteophyte, left hip; M65.98 Unspecified synovitis and tenosynovitis, other site; I48.0 Paroxysmal atrial fibrillation; M16.12 Unilateral primary osteoarthritis, left hip; Z88.5 Allergy status to narcotic agent; Z79.899 Other long term (current) drug therapy; Z79.01 Long term (current) use of anticoagulants